=== PATIENT | female | born 1945 | race Caucasian/White ===

== ENCOUNTER 2016-08-12 13:48 | Day surgery (SDC) | payer MEDICARE, BC ==
[~2016-08-12 13:48] MED LIST: LEVO.125 PO; LEVO112T17 PO; LORT5TAB PO; MACR100C PO; WELL150T PO
[2016-08-12 14:10] VITALS: BP 153/83; PULSE 89; RESP 20; TEMP 99.2; O2SAT 95
[2016-08-12] MEDS ORDERED: WELLTAB39 PO (14:21)
[2016-08-12] MEDS ORDERED: LEVO112T2 PO (14:21)
[2016-08-12] MEDS ORDERED: LEVO50TA4 PO (14:21)
[2016-08-12] MEDS ORDERED: TRIAMCINOLONE ACETONIDE 40 MG/ML VIAL ONE (15:02)
[2016-08-12] MEDS ORDERED: BUPIVACAINE HCL PF 0.75% 30 ML VIAL ONE (15:03)
[2016-08-12 15:30] VITALS: BP 141/75; PULSE 67; RESP 18; TEMP 98.7; O2SAT 95
--- NOTE | 2016-08-12 16:11 | RADRPT ---
EXAM DATE/TIME: 08/12/2016 15:11 [facility] COMPARISON: No previous studies available for comparison. INDICATIONS : Patient with right hip pain in need of facet injection. MEDICAL HISTORY : COPD Thyroid disease elevated lipids GERD Arthritis Bipolar disorder SURGICAL HISTORY : Gallbladder removal Right nephrectomy C4-5 fusion ENCOUNTER: Initial ACUITY: 4 - 6 months PAIN SCORE: 0/10 FLUORO TIME: 0.4 minutes IMAGE SERIES: 0 ACCESS LEVEL: Right L5-S1 MEDICATION(S): 1.) 60 mg triamcinolone (Kenalog) 2.) 3 cc Sensorcaine RESPONSE: Pre procedure pain level was 0/10. Post procedure pain level was 0/10. PROCEDURE : Fluoroscopically guided facet injection. The risks, benefits and alternatives to the procedure were explained and verbal and written consent w as obtained. The site was prepped in sterile fashion. Full sterile technique was used, including ca p, mask, sterile gloves and gown and a large sterile sheet. Hand hygiene and 2% chlorhexidine and/or betadine/alcohol prep was utilized per protocol for cutaneous antisepsis. The skin and subcutaneous tissues were infiltrated with local anesthetic solution. With fluoroscopic guidance the targeted facet was localized and 22 gauge spinal needle was advanced u nder careful fluoroscopic guidance into the joint. Contrast was not injected due to patient's history of severe contrast reaction. The prescribed medications were injected into the facet joint. The caroline ent's pre and post procedure pain levels were recorded. CONCLUSION: Uncomplicated fluoroscopically guided facet injection as above. Kwame To MD on August 12, 2016 at 16:07 Board Certified Radiologist. This report was verified electronically.
== END 2016-08-12 16:00 | disposition home or self-care (01) ==
LOC: HROP 13:48 → HRIP 13:52 → HROP 16:00
PROVIDERS: ATTEND Surgery
DX: M25.551 Pain in right hip (principal); K21.9 Gastro-esophageal reflux disease without esophagitis; E07.9 Disorder of thyroid, unspecified; J44.9 Chronic obstructive pulmonary disease, unspecified; Z91.041 Radiographic dye allergy status
CPT/HCPCS: 64493; J3301

== ENCOUNTER 2016-10-18 12:41 | Day surgery (SDC) | payer MEDICARE, BC ==
[~2016-10-18 12:41] MED LIST changes: -LEVO.125 PO; -LEVO112T17 PO; +LEVO112T2 PO; +LEVO50TA4 PO; -LORT5TAB PO; -MACR100C PO; -WELL150T PO; +WELLTAB39 PO
[2016-10-18 12:59] VITALS: BP 155/75; PULSE 74; RESP 18; TEMP 98.9; O2SAT 97
[2016-10-18] MEDS ORDERED: SERO50TA PO (13:11)
[2016-10-18] MEDS ORDERED: METO-309 PO (13:11)
[2016-10-18] MEDS ORDERED: LURA80 PO (13:11)
[2016-10-18] MEDS ORDERED: TRIAMCINOLONE ACETONIDE 40 MG/ML VIAL ONE (13:45)
[2016-10-18 14:05] VITALS: BP 177/94; PULSE 70; RESP 18; TEMP 98.9; O2SAT 98
--- NOTE | 2016-10-18 14:15 | PD.RAD ---
Post Procedure Progress Note Pre Procedure Diagnosis: (1) Back pain Post Procedure Diagnosis: (1) Back pain Procedure Date: Oct 18, 2016 Supervising Radiologist: Dilan Bravo Proceduralist/Assist: RT Mitchell(R) Anesthesia: Local Plan of Activity Patient to Unit: [facility] Patient Condition: Good See PACS Report for procedural detail/treatment Spinal Procedure Facet Injection L5-S1 (right) Dilan Bravo MD Oct 18, 2016 14:15
--- NOTE | 2016-10-18 14:49 | RADRPT ---
EXAM DATE/TIME: 10/18/2016 13:45 [facility] COMPARISON: FACET INJ, LUMB, INIT LEVEL, RT, August 12, 2016, 15:11. INDICATIONS : Patient presents with right hip pain in need of facet injection for pain management. MEDICAL HISTORY : One kidney/renal disease Stones COPD Emphysema Diabetes Dyslipidemia Asthma PAD GERD Thyroid disease Arthritis Bipolar disorder SURGICAL HISTORY : Gallbladder removal Right nephrectomy C4-5 fusion ENCOUNTER: Subsequent ACUITY: >1 year PAIN SCORE: 4/10 LOCATION: Right Hip FLUORO TIME: 1.3 minutes IMAGE SERIES: 0 ACCESS LEVEL: Right L5-S1 MEDICATION(S): 1.) 1 cc triamcinolone (Kenalog) IA 2.) 1 cc Lidocaine IA RESPONSE: Pre procedure pain level was 4/10. Post procedure pain level was 4/10. PROCEDURE : Fluoroscopically guided facet injection. The risks, benefits and alternatives to the procedure were explained and verbal and written consent w as obtained. The site was prepped in sterile fashion. Full sterile technique was used, including ca p, mask, sterile gloves and gown and a large sterile sheet. Hand hygiene and 2% chlorhexidine and/or betadine/alcohol prep was utilized per protocol for cutaneous antisepsis. The skin and subcutaneous tissues were infiltrated with local anesthetic solution. With fluoroscopic guidance the targeted facet was localized and positive contrast was injected to con firm intra-articular position. The prescribed medications were injected into the facet joint. The pat ient's pre and post procedure pain levels were recorded. CONCLUSION: Uncomplicated fluoroscopically guided facet injection as above. Dilan Bravo MD on October 18, 2016 at 14:46 Board Certified Radiologist. This report was verified electronically.
== END 2016-10-18 14:32 | disposition home or self-care (01) ==
LOC: HROP 12:41 → HRIP 12:42 → HROP 14:32
PROVIDERS: ATTEND Surgery
DX: M54.16 Radiculopathy, lumbar region (principal); M25.551 Pain in right hip; N28.9 Disorder of kidney and ureter, unspecified; J44.9 Chronic obstructive pulmonary disease, unspecified; E11.9 Type 2 diabetes mellitus without complications; E78.5 Hyperlipidemia, unspecified; I73.9 Peripheral vascular disease, unspecified; K21.9 Gastro-esophageal reflux disease without esophagitis; F31.9 Bipolar disorder, unspecified; M19.90 Unspecified osteoarthritis, unspecified site
CPT/HCPCS: 64493; J3301